=== PATIENT | female | born 1955 | race Caucasian/White ===

== ENCOUNTER 2020-01-21 22:32 | Outpatient (CLI) | payer OTHER | END 2020-01-21 22:33 | disposition critical access hospital (66) | LOC: EMS 22:32 | PROVIDERS: ATTEND Surgery | DX: R10.30 Lower abdominal pain, unspecified (principal); R06.02 Shortness of breath; R00.0 Tachycardia, unspecified | CPT/HCPCS: A0425; A0429 ==

== ENCOUNTER 2020-01-21 22:56 | Emergency (ER) | payer OTHER ==
[2020-01-21] MEDS ORDERED: SODIUM CHLORIDE 0.9% 1,000 ML IV ONE ×2 (23:10→23:49)
[2020-01-21] MEDS ORDERED: diltiaZEM INJ 5 MG/ML VIAL IVP STA (23:11)
[2020-01-21 23:23] LABS: BASOPHILS # (AUTO) 0.2 10^3/uL (0.0-0.1); BASOPHILS % (AUTO) 0.8 %; EOSINOPHILS # (AUTO) 0.1 10^3/uL (0.0-0.7); EOSINOPHILS % (AUTO) 0.4 %; HGB - HEMOGLOBIN 15.5 g/dL (12.0-16.0); LYMPHOCYTES # (AUTO) 0.5 10^3/uL (1.5-3.5); LYMPHOCYTES % (AUTO) 1.9 %; MEAN CORPUSCULAR HEMOGLOBIN 30.2 pg (27.0-31.0); MEAN CORPUSCULAR HGB CONC 32.7 g/dL (32.0-36.0); MEAN CORPUSCULAR VOLUME 92.4 fL (81.0-99.0); MEAN PLATELET VOLUME 9.4 fL (7.9-10.8); MONOCYTES # (AUTO) 1.2 10^3/uL (0.0-1.0); NEUTROPHILS # (AUTO) 22.5 10^3/uL (1.5-6.6); NEUTROPHILS % (AUTO) 91.1 %; PLT - PLATELET COUNT 310 10^3/uL (130-450); RED BLOOD COUNT 5.13 10^6/uL (4.20-5.40); RED CELL DISTRIBUTION WIDTH 13.5 % (12.0-15.0); WHITE BLOOD COUNT 24.6 x10^3/uL (4.8-10.8)
[2020-01-21] MEDS ORDERED: cefTRIAXone 2 GM in SODIUM CHLORIDE 0.9% MINIBAG 100 ML IV STA (23:26)
[2020-01-21] MEDS ORDERED: ONDANSETRON 4 MG/2 ML VIAL IVP STA (23:28)
[2020-01-21] MEDS ORDERED: HYDROmorphone 1 MG/ML CARPUJECT IVP STA (23:28)
[2020-01-21 23:36] LABS: ALBUMIN 3.4 g/dL (3.2-5.5); ALBUMIN/GLOBULIN RATIO 0.9 (1.0-2.2); BILIRUBIN,TOTAL 1.3 mg/dL (0.2-1.0); CALCIUM 9.4 mg/dL (8.5-10.3); CREATININE 1.3 mg/dL (0.4-1.0); TOTAL PROTEIN 7.3 g/dL (6.7-8.2)
[2020-01-21] MEDS ORDERED: IOVERSOL 320 100 ML VIAL IVP ONE (23:40)
--- NOTE | 2020-01-22 00:09 | XRAY Report ---
Reason: Chest pain Procedure Date: 01/21/2020 Accession Number: [id number] / [id number] Procedure: XR - Chest 1 View X-Ray CPT Code: 09296 Final Report FULL RESULT: EXAM: CHEST RADIOGRAPHY EXAM DATE: 01/21/2020 11:34 PM. CLINICAL HISTORY: Chest pain. COMPARISON: None. TECHNIQUE: 1 view. FINDINGS: Lungs/Pleura: No focal opacities evident. No pleural effusion. No pneumothorax. Mediastinum: Within exam limitations, the cardiomediastinal contour is normal. Other: None. IMPRESSION: No acute cardiopulmonary findings radiographically. RADIA
[2020-01-22] MEDS ORDERED: PIPERACILLIN/TAZOBACTAM 3.375 GM in SODIUM CHLORIDE 0.9% MINIBAG 100 ML IV STA (00:23)
--- NOTE | 2020-01-22 00:28 | ED Physician Documentation ---
History of Present Illness - Stated complaint Stated Complaint: AFIB - Chief complaint Chief Complaint: Cardiac - History obtained from History obtained from: Patient, EMS - History of Present Illness Timing: How many days ago (3) Pain level max: 10 Pain level now: 10 Quality: Dull Radiates to: None Improved by: Nothing Worsened by: Nothing - Additonal information Additional information: 64 year old female otherwise healthy presents to the emergency department with 3 days of generalized abdominal pain with nausea. Patient denies any vomiting. She reported of subjective fever and chills. Patient has been taking ibuprofen or tylenol without improvement. She denies denies any sick contacts or recent travel outside of country. She denies hx of the same. Her last bowel movement was on Tuesday. She last ate on Tuesday as well. Only previous abdominal surgery was ectopic with tube removed. Review of Systems Constitutional: reports: Fever, Chills Nose: denies: Rhinorrhea / runny nose, Foreign Body Cardiac: denies: Chest pain / pressure, Palpitations Respiratory: denies: Dyspnea, Cough GI: reports: Abdominal Pain, Nausea. 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 : None HEENT: None Psych: None Musculoskeletal: None - Past Surgical History Past Surgical History: Yes - Present Medications Home Medications: Ambulatory Orders Medication Instructions Recorded Confirmed Ciprofloxacin [Cipro] 500 mg PO BID #9 tablet 07/11/14 - Allergies Allergies/Adverse Reactions: Allergies Allergy/AdvReac Type Severity Reaction Status Date / Time aspirin Allergy Unknown Verified 07/11/14 03:43 - Social History Does the pt smoke?: No Smoking Status: Never smoker Does the pt drink ETOH?: No - Immunizations Immunizations are current?: Yes PD ED PE NORMAL - Vitals Vital signs reviewed: Yes - General General: Alert and oriented X 3, Other (moderate distress) - HEENT HEENT: Atraumatic - Neck Neck: Supple, no meningeal sign - Cardiac Cardiac: Other (tachycardiac and irregular) - Respiratory Respiratory: No respiratory distress - Abdomen Abdomen: Other (abdomen is mildy distended and diffusely tender. No guarding. ) - Derm Derm: Normal color, Warm and dry - Extremities Extremities: No deformity, No tenderness to palpate, No edema, No calf tenderness / cord - Neuro Neuro: Alert and oriented X 3, hot knife foxing cutter 2-12 intact Eye Opening: Spontaneous Motor: Obeys Commands Verbal: Oriented GCS Score: 15 Results - Vitals Vitals: Vital Signs - 24 hr 01/21/20 01/21/20 01/22/20 22:59 23:43 00:32 Temperature 36.2 C L Heart Rate 171 H 162 H 158 H Respiratory 34 H 16 25 H Rate Blood Pressure 107/79 106/93 H 120/82 H O2 Saturation 97 99 95 01/22/20 01/22/20 01/22/20 01:03 01:31 02:00 Temperature Heart Rate 151 H 164 H 159 H Respiratory 30 H 25 H 26 H Rate Blood Pressure 102/85 H 101/78 104/89 H O2 Saturation 96 94 97 Oxygen O2 Source Room air - EKG (time done) 2309 Rhythm: Atrial fibrillation [place]: Normal Intervals: Normal [place] QRS: Normal Ischemia: Non specific changes Compare to prior EKG: Old EKG unavailable - Labs Labs: Laboratory Tests 01/21/20 01/21/20 01/21/20 23:17 23:17 23:17 WBC 24.6 H RBC 5.13 Hgb 15.5 Hct 47.4 H MCV 92.4 MCH 30.2 MCHC 32.7 RDW 13.5 Plt Count 310 MPV 9.4 Neut # (Auto) 22.5 H Lymph # (Auto) 0.5 L [place] # (Auto) 1.2 H Eos # (Auto) 0.1 Baso # (Auto) 0.2 H Absolute Nucleated RBC 0.00 Nucleated RBC % 0.0 Sodium 133 L Potassium 3.4 L Chloride 94 L Carbon Dioxide 23 Anion Gap 16.0 H BUN 41 H Creatinine 1.3 H Estimated GFR (MDRD) 41 L Glucose 153 H Lactic Acid Calcium 9.4 Total Bilirubin 1.3 H AST 36 ALT 27 Alkaline Phosphatase 78 Troponin I High Sens 49.3 H* B-Natriuretic Peptide Total Protein 7.3 Albumin 3.4 Globulin 3.9 Albumin/Globulin Ratio 0.9 L Lipase 18 L 01/21/20 01/21/20 01/22/20 23:17 23:17 02:17 WBC RBC Hgb Hct MCV MCH MCHC RDW Plt Count MPV Neut # (Auto) Lymph # (Auto) [place] # (Auto) Eos # (Auto) Baso # (Auto) Absolute Nucleated RBC Nucleated RBC % Sodium Potassium Chloride Carbon Dioxide Anion Gap BUN Creatinine Estimated GFR (MDRD) Glucose Lactic Acid 3.1 H* 2.0 Calcium Total Bilirubin AST ALT Alkaline Phosphatase Troponin I High Sens B-Natriuretic Peptide 337 H Total Protein Albumin Globulin Albumin/Globulin Ratio Lipase PD MEDICAL DECISION MAKING - ED course Complexity details: re-evaluated patient, d/w patient, d/w family, d/w [employer] ascp consultant ED course: 64 YEAR OLD FEMALE PRESENTED TO THE EMERGENCY DEPARTMENT WITH ABDOMINAL PAIN FOR 3 DAYS. SHE WAS IN ATRIAL FIBRILLATION WTIH RAPID VENTRICULAR RESPONSE. ABDOMEN WAS MILDLY DISTENDED. PATIENT WAS IN MILD-MODERATE DISTRESS. IV FLUID, ROCEPHIN, ZOSYN WERE GIVEN. CARDIZEM BOLUS WITH INFUSION STARTED. CTA CHEST SHOWED NO PULMONARY EMBOLISM OR OTHER ACUTE FINDINGS. CT ABDOMEN PELVIS SHOWED FREE INTRAPERITONEAL AIR CONSISTENT WITH PERFORATED VISCUS AND FLUID COLLECTION AT THE SIGMOID COLON. THIS IS CONSISTENT WITH PERFORATED DIVERTICULITIS. CASE WAS DISCUSSED WITH DR. ROQUE, GENERAL SURGEON AND DR. NETTLES. THEY BOTH RECOMMENDED THE PATIENT TO BE TRANSFER TO A HIGHER LEVEL OF CARE. CALLED [facility] AND [facility] AND THERE WERE NO ICU BEDS AVAILABLE. SPOKE WITH DR. CHUNG, GENERAL SURGEON AT [facility]. HE ADVISED PATIENT TO BE TRANSFERRED TO THE EMERGENCY DEPARTMENT AND HAVE THE HOSPITALIST ADMIT THE PATIENT. PATIENT WILL NEED TO UNDERGO SURGERY. DISCUSSED WITH DR. SHAW, ED PHYSICIAN AT [facility]. THE PATIENT WAS ACCEPTED FOR TRANSFER. PATIENT REMAINED TACHYCARDIAC. 3RD LITER OF IV FLUID BOLUSES WERE GIVEN. Departure - Departure Disposition: 02 Transfer Acute Care Hosp Clinical Impression: Sepsis, Perforated viscus, Diverticulitis of intestine with perforation Condition: Critical
[2020-01-22] MEDS ORDERED: MORPHINE 2 MG/ML CARPUJECT IVP STA (00:30)
[2020-01-22] MEDS ORDERED: IOVERSOL 320 100 ML VIAL IVP ONE (00:34)
[2020-01-22] MEDS ORDERED: diltiaZEM INJ 5 MG/ML VIAL ONE (00:57)
[2020-01-22] MEDS ORDERED: diltiaZEM INJ 125 MG in DEXTROSE 5% 100 ML IV SCH (01:00)
[2020-01-22] MEDS ORDERED: diltiaZEM INJ 125 MG in SODIUM CHLORIDE 0.9% 100ML 100 ML IV STA (01:12)
--- NOTE | 2020-01-22 01:28 | CT Report ---
Reason: ABDOMINAL PAIN, CONCERN FOR MESENTERIC ISCHEMIA Procedure Date: 01/22/2020 Accession Number: [id number] / [id number] Procedure: CT - Abdomen/Pelvis W CPT Code: Final Report FULL RESULT: EXAM: CT ABDOMEN AND PELVIS EXAM DATE: 01/22/2020 12:38 AM. CLINICAL HISTORY: ABDOMINAL PAIN, CONCERN FOR MESENTERIC ISCHEMIA. COMPARISONS: CHEST ANGIO 01/22/2020 12:19 AM. TECHNIQUE: Routine helical CT imaging was performed through the abdomen and pelvis. IV contrast: 80 cc OPTIRAY 320. Enteric contrast: No. Reconstructions: Coronal and sagittal. In accordance with CT protocol optimization, one or more of the following dose reduction techniques were utilized for this exam: automated exposure control, adjustment of mA and/or KV based on patient size, or use of iterative reconstructive technique. FINDINGS: ABDOMEN: Lung Bases: Incompletely included lower lungs demonstrate scattered atelectasis. Heart size is within normal limits. No basilar effusions. Liver: Multiple cysts measuring up to 7.6 cm in the right hepatic lobe. Spleen: Unremarkable. Pancreas: Unremarkable. Gallbladder/Bile Ducts: Gallbladder is unremarkable. Biliary tree is normal caliber. Adrenal Glands: Unremarkable. Kidneys: No mass, calculi, or hydronephrosis. Peritoneum/Mesentery/Bowel/pelvis: Free intraperitoneal air is present. The majority is in the lower pelvis adjacent to the sigmoid colon. Crescentic 6.8 x 3.1 cm collection of gas and complex fluid in the left pelvis (series 10/images 40-50). Thickening of the sigmoid colon with adjacent free air (10/42). Mottled gas extends through the posterior aspect of the sigmoid colon (10/47). Lymph nodes: No mesenteric, periportal, or retroperitoneal lymphadenopathy. Vasculature: Abdominal aorta is nonaneurysmal. Portal vein is patent. Hepatic veins are patent. PELVIS: The bladder is unremarkable for the degree of distention. Fibroid uterus is present. No pelvic lymphadenopathy. Bones: No suspicious osseous lesions. IMPRESSION: Perforated sigmoid diverticulitis. There is enlargement of free intraperitoneal air and gas and fluid collection containing bowel contents in the dependent pelvis adjacent to the inflamed sigmoid. Surgical consultation is recommended. Small bowel ileus versus developing bowel obstruction, with the transition point near the sigmoid colon in the pelvis. RADIA The call report notification system was initiated by Dr. Antwon Flores at 01:18 AM on 01/22/2020. The above call report findings were discussed with Colin Meredith by Dr. Antwon Flores at 01:27 AM on 01/22/2020.
--- NOTE | 2020-01-22 01:30 | CT Report ---
Reason: PE STUDY Procedure Date: 01/22/2020 Accession Number: [id number] / [id number] Procedure: CT - ANGIO CHEST W/WO CPT Code: Final Report FULL RESULT: EXAM: CT ANGIOGRAM CHEST EXAM DATE: 01/22/2020 12:38 AM. CLINICAL HISTORY: Shortness of breath. COMPARISON: CHEST 1 VIEW 01/21/2020 11:16 PM. TECHNIQUE: Routine helical imaging was performed through the chest in the pulmonary arterial phase. IV Contrast: OPTIRAY 320. Reconstructions: Coronal 3-D MIP reconstructions. Sagittal and coronal. In accordance with CT protocol optimization, one or more of the following dose reduction techniques were utilized for this exam: automated exposure control, adjustment of mA and/or KV based on patient size, or use of iterative reconstructive technique. FINDINGS: Pulmonary Arteries: Diagnostic quality: Adequate through the segmental arteries. No evidence for acute or chronic pulmonary emboli. RV/LV is within normal limits. There is no interventricular septal bowing. There is no reflux of contrast material in the IVC. Lungs/Pleura: Mild dependent atelectasis in the right lower lobe. No pleural effusions or pneumothorax. Mediastinum: Heart size within normal limits. No pulmonary vascular congestion. Thoracic Aorta: Study not optimized for evaluation of the thoracic aorta. No aneurysmal dilatation. Upper Abdomen: Please see dedicated CT scan of the abdomen/pelvis reports for abdominal/pelvic findings. Other: Surgical clips in the left breast. IMPRESSION: 1. No evidence of pulmonary embolism. 2. Mild dependent atelectasis in the right lower lobe. 3. Please see dedicated CT scan of the abdomen/pelvis for abdominal/pelvic findings. RADIA
[2020-01-22] MEDS ORDERED: SODIUM CHLORIDE 0.9% 1,000 ML IV ONE ×2 (02:12→02:21)
[2020-01-22 03:17] VITALS: BP 102/92
== END 2020-01-22 03:37 | disposition short-term general hospital (02) ==
LOC: EDUNIT# → ED 22:56
DX: A41.9 Sepsis, unspecified organism (principal); K57.20 Diverticulitis of large intestine with perforation and abscess without bleeding; I48.91 Unspecified atrial fibrillation
CPT/HCPCS: 36415; 51702; 71045; 71275; 74177; 80053; 83605; 83690; 83880; 84484; 85025; 87040; 93005; 96361; 96365; 96367; 96375; 96376; 99284; 99285; J1170; Q9967

== ENCOUNTER 2021-09-21 08:58 | Outpatient (CLI) | payer MEDICARE, BC ==
[2021-09-21 10:19] LABS: BASOPHILS # (AUTO) 0.1 10^3/uL (0.0-0.1); EOSINOPHILS # (AUTO) 0.1 10^3/uL (0.0-0.7); EOSINOPHILS % (AUTO) 1.4 %; HCT - HEMATOCRIT 48.2 % (37.0-47.0); HGB - HEMOGLOBIN 15.9 g/dL (12.0-16.0); LYMPHOCYTES # (AUTO) 2.1 10^3/uL (1.5-3.5); LYMPHOCYTES % (AUTO) 29.3 %; MEAN CORPUSCULAR HEMOGLOBIN 31.1 pg (27.0-31.0); MEAN CORPUSCULAR VOLUME 94.3 fL (81.0-99.0); MEAN PLATELET VOLUME 9.2 fL (7.9-10.8); MONOCYTES # (AUTO) 0.7 10^3/uL (0.0-1.0); MONOCYTES % (AUTO) 9.8 %; NEUTROPHILS # (AUTO) 4.1 10^3/uL (1.5-6.6); NEUTROPHILS % (AUTO) 58.1 %; PLT - PLATELET COUNT 256 10^3/uL (130-450); RED BLOOD COUNT 5.11 10^6/uL (4.20-5.40); RED CELL DISTRIBUTION WIDTH 12.6 % (12.0-15.0); WHITE BLOOD COUNT 7.1 x10^3/uL (4.8-10.8)
[2021-09-21 10:40] LABS: ALBUMIN 4.5 g/dL (3.2-5.5); ALBUMIN/GLOBULIN RATIO 1.6 (1.0-2.2); ALKALINE PHOSPHATASE 54 IU/L (42-121); ALT ALANINE AMINOTRANSFERASE 16 IU/L (10-60); AST ASPARTATE AMINOTRANSFERASE 20 IU/L (10-42); BILIRUBIN,TOTAL 1.3 mg/dL (0.2-1.0); BUN - BLOOD UREA NITROGEN 17 mg/dL (6-20); CALCIUM 9.9 mg/dL (8.5-10.3); CARBON DIOXIDE - CO2 28 mmol/L (21-32); CHLORIDE 107 mmol/L (101-111); CHOL/HDL RATIO 4.3 (<4.4); CHOLESTEROL 239 mg/dL; CREATININE 0.9 mg/dL (0.4-1.0); GFR - MDRD 63 (>89); GLUCOSE 95 mg/dL (70-100); HDL CHOLESTEROL 56 mg/dL; LDL CHOLESTEROL,CALCULATED 160 mg/dL; LDL/HDL RATIO 2.9 (<4.4); POTASSIUM 4.2 mmol/L (3.5-5.0); SODIUM 144 mmol/L (135-145); TOTAL PROTEIN 7.4 g/dL (6.7-8.2); TRIGLYCERIDES 113 mg/dL; VLDL CHOLESTEROL 23 mg/dL
[2021-09-21 10:49] LABS: THYROID STIMULATING HORMONE 1.49 uIU/mL (0.34-5.60)
[2021-09-21 11:37] LABS: CREATININE,URINE 48.5 mg/dL; PROTEIN/CREATININE RATIO,URINE 0.2 (<=0.2)
== END 2021-09-21 08:59 | disposition home or self-care (01) ==
LOC: LAB 08:58
PROVIDERS: ATTEND Internal Medicine Nephrology
DX: Z72.0 Tobacco use (principal); N28.89 Other specified disorders of kidney and ureter; K57.92 Diverticulitis of intestine, part unspecified, without perforation or abscess without bleeding; R80.9 Proteinuria, unspecified; Z93.3 Colostomy status
CPT/HCPCS: 36415; 80053; 80061; 82570; 83721; 84156; 84443; 85025

== ENCOUNTER 2021-09-24 13:26 | Outpatient (CLI) | payer MEDICARE, BC ==
--- NOTE | 2021-09-24 19:07 | CT Report ---
PROCEDURE: CT chest without contrast, Low Dose Lung Cancer Screen INDICATIONS: TOBACCO ABUSE TECHNIQUE: Noncontrast low-dose images were acquired from the pulmonary apices to the posterior costophrenic ang les. Multiplanar MIP reformats were then acquired. For radiation dose reduction, the following was used: automated exposure control, adjustment of mA and/or kV according to patient size. COMPARISON: Prior CT abdomen and pelvis 01/21/2020 report. Images not available. FINDINGS: Image quality: Excellent. Lungs and pleura: Lungs and pleural spaces are clear. No evidence of pulmonary nodule, infiltrate, p leural effusion or pneumothorax. Mediastinum: Heart size is normal. No pericardial effusion. No mediastinal adenopathy by size crit eria. Thoracic aorta and central pulmonary arteries are normal in size. Esophagus is normal in miguel janet. No hiatal hernia. Bones and chest wall: No suspicious bony lesions. No vertebral body compression fractures. No axil eamon or supraclavicular adenopathy by size criteria. The thyroid is normal in size and there are no incidental findings. Surgical clips noted in the left breast. Abdomen: Multiple hepatic simple appearing cysts, largest in the right hepatic lobe measures 7.5 cm. IMPRESSION: 1. No evidence of pulmonary nodule, pneumothorax or pleural effusion. 2. Simple appearing hepatic cysts Reviewed by: Clive Isabel MD on 09/24/2021 6:06 PM FREYA Approved by: Clive Isabel MD on 09/24/2021 6:06 PM FREYA Station ID: [id number]
== END 2021-09-24 13:27 | disposition home or self-care (01) ==
LOC: DI 13:26
PROVIDERS: ATTEND Registered Nurse
DX: Z12.2 Encounter for screening for malignant neoplasm of respiratory organs (principal); F17.210 Nicotine dependence, cigarettes, uncomplicated; K76.89 Other specified diseases of liver

== ENCOUNTER 2021-11-04 12:15 | Outpatient (CLI) | payer MEDICARE, BC ==
[2021-11-04 12:36] LABS: BILIRUBIN,URINE NEGATIVE (NEGATIVE); GLUCOSE, URINE (UA) NEGATIVE (NEGATIVE); KETONES,URINE (UA) NEGATIVE (NEGATIVE); LEUKOCYTE ESTERASE, URINE NEGATIVE (NEGATIVE); NITRITE,URINE NEGATIVE (NEGATIVE); OCCULT BLOOD,URINE TRACE-INTA (NEGATIVE); PROTEIN,URINE NEGATIVE (NEGATIVE); UROBILINOGEN,URINE 0.2 (NORMAL) E.U./dL (NORMAL)
[2021-11-04 12:43] LABS: CREATININE 0.9 mg/dL (0.4-1.0)
[2021-11-04 13:08] LABS: BACTERIA,URINE None Seen /HPF (None Seen); CLARITY,URINE CLEAR (CLEAR); RBC,URINE None Seen /HPF (0-5); SQUAMOUS EPITHELIAL CELL,UR RARE Squamous (<= Few); WBC,URINE 0-3 /HPF (0-5)
== END 2021-11-04 12:16 | disposition home or self-care (01) ==
LOC: LAB 12:15
PROVIDERS: ATTEND Internal Medicine Nephrology
DX: N30.00 Acute cystitis without hematuria (principal); N05.9 Unspecified nephritic syndrome with unspecified morphologic changes
CPT/HCPCS: 36415; 81001; 82565

== ENCOUNTER 2021-11-09 10:40 | Outpatient (CLI) | payer MEDICARE, BC ==
[2021-11-09] MEDS ORDERED: IOVERSOL 320 50 ML VIAL ONE (10:50)
[2021-11-09] MEDS ORDERED: IOPAMIDOL-300 100 ML VIAL ONE (10:50)
--- NOTE | 2021-11-09 16:13 | CT Report ---
PROCEDURE: Abdomen/Pelvis W INDICATIONS: KIDNEY MASS CONTRAST: IV CONTRAST: Isovue 300 ml: 100 PO CONTRAST: Optiray 320 ml50 TECHNIQUE: After the administration of intravenous contrast, 5 mm thick sections acquired from the diaphragms to the symphysis. 5 mm thick coronal and sagittal reformats were acquired. For radiation dose reducti on, the following was used: automated exposure control, adjustment of mA and/or kV according to miguelito ent size. COMPARISON: CT chest 09/24/2021, CT abdomen pelvis 01/22/2020 FINDINGS: Image quality: Excellent. ABDOMEN: Lung bases: There is minimal dependent atelectasis. Heart size is normal. Solid organs: Multiple hepatic cysts are redemonstrated, with the largest in the right lobe measurin g up to 7.8 x 6.0 cm in transverse dimension. These are similar in size to the prior studies. Gallbla dder appears within normal limits without calcified gallstones. Biliary system is non dilated. Pancr eas enhances normally. No adrenal nodules. There is a small exophytic peripherally enhancing mass extending anterolaterally from the inferior po le the left kidney. This measures up to approximately 1.6 x 1.1 x 1.5 cm in dimension, similar in siz e compared to the prior studies dating back to 01/22/2020. No evidence of adjacent perinephric solid o rgan invasion. No hilar or renal vein invasion. No discrete additional renal mass identified. There a re a few small punctate hypodense foci within the kidneys which are too small to characterize but lik shauna represent cysts. No hydronephrosis. Peritoneum and bowel: Bowel loops demonstrate normal wall thickness and caliber. No free fluid or a ir. Nodes and vessels: No retroperitoneal or mesenteric adenopathy by size criteria. Aorta and inferior vena cava are normal in size. Miscellaneous: No ventral hernias. PELVIS: Genitourinary: Bladder wall thickness is normal. There are calcified mass is redemonstrated within t he uterus consistent with uterine fibroids. Miscellaneous: No inguinal hernias or adenopathy. Bones: No suspicious bony lesions. No vertebral body compression fractures. IMPRESSION: 1. Enhancing exophytic mass in the inferior pole the left kidney appears similar in size compared to the prior studies. The findings most likely represent renal cell carcinoma. No evidence of adjacent s olid organ invasion or renal vein extension. 2. No evidence of lymphadenopathy in the abdomen and pelvis by size criteria. 3. Numerous hepatic cysts redemonstrated. Reviewed by: Quincy Peters MD on 11/09/2021 4:11 PM PST Approved by: Quincy Peters MD on 11/09/2021 4:11 PM PST Station ID: [id number]
[2021-11-09] MEDS ORDERED: IOPAMIDOL-300 100 ML VIAL IVP ONE (19:04)
[2021-11-09] MEDS ORDERED: IOPAMIDOL-300 50 ML VIAL PO ONE (19:05)
== END 2021-11-09 10:41 | disposition home or self-care (01) ==
LOC: DI 10:40
PROVIDERS: ATTEND Internal Medicine Nephrology
DX: N28.89 Other specified disorders of kidney and ureter (principal); K76.89 Other specified diseases of liver
CPT/HCPCS: 74177; Q9967

== ENCOUNTER 2022-02-08 13:40 | Emergency (ER) | payer MEDICARE, BC ==
[2022-02-08 14:14] LABS: BASOPHILS % (AUTO) 0.6 %; EOSINOPHILS % (AUTO) 0.6 %; HCT - HEMATOCRIT 44.9 % (37.0-47.0); HGB - HEMOGLOBIN 15.2 g/dL (12.0-16.0); LYMPHOCYTES # (AUTO) 1.9 10^3/uL (1.5-3.5); LYMPHOCYTES % (AUTO) 28.4 %; MEAN CORPUSCULAR HGB CONC 33.9 g/dL (32.0-36.0); MEAN CORPUSCULAR VOLUME 91.4 fL (81.0-99.0); MEAN PLATELET VOLUME 9.2 fL (7.9-10.8); MONOCYTES # (AUTO) 0.6 10^3/uL (0.0-1.0); MONOCYTES % (AUTO) 9.6 %; NEUTROPHILS % (AUTO) 60.6 %; PLT - PLATELET COUNT 258 10^3/uL (130-450); RED BLOOD COUNT 4.91 10^6/uL (4.20-5.40); RED CELL DISTRIBUTION WIDTH 12.6 % (12.0-15.0); WHITE BLOOD COUNT 6.6 x10^3/uL (4.8-10.8)
--- NOTE | 2022-02-08 14:24 | XRAY Report ---
PROCEDURE: Chest 1 View X-Ray INDICATIONS: Chest pain TECHNIQUE: One view of the chest was acquired. COMPARISON: 01/21/2020 FINDINGS: Surgical changes and devices: Surgical clips are noted in left breast. Lungs and pleura: No pleural effusions or pneumothorax. Lungs are clear. Mediastinum: Mediastinal contours appear normal. Heart size is normal. Bones and chest wall: No suspicious bony lesions. Overlying soft tissues appear unremarkable. IMPRESSION: No acute cardiopulmonary pathology. Reviewed by: Sanjay Whittaker MD on 02/08/2022 2:22 PM PDT Approved by: Sanjay Whittaker MD on 02/08/2022 2:22 PM PDT Station ID: [id number]
[2022-02-08 14:36] LABS: ALBUMIN 4.3 g/dL (3.2-5.5); ALBUMIN/GLOBULIN RATIO 1.7 (1.0-2.2); BILIRUBIN,TOTAL 0.9 mg/dL (0.2-1.0); CALCIUM 9.5 mg/dL (8.5-10.3); CREATININE 0.9 mg/dL (0.4-1.0); POTASSIUM 3.8 mmol/L (3.5-5.0); TOTAL PROTEIN 6.9 g/dL (6.7-8.2)
--- NOTE | 2022-02-08 15:58 | ED Physician Documentation ---
History of Present Illness - Stated complaint Stated Complaint: CHEST PX - Chief complaint Chief Complaint: Cardiac - History obtained from History obtained from: Patient - History of Present Illness Timing: Today Pain level max: 0 Pain level now: 0 - Additonal information Additional information: Patient is a 66-year-old female who states that last night she had an episode of feeling her heart race for about 10 minutes. She states that intermittently her blood pressure has been high over the past few weeks. She occasionally has palpitations and occasionally feels her heart race. She thinks that she had atrial fibrillation once after a bowel perforation. She does not recall any other arrhythmias. Nothing makes it better or worse. Currently asymptomatic. No chest pain. No shortness of breath. No nausea or vomiting. 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 : None HEENT: None Psych: None Musculoskeletal: None - Past Surgical History Past Surgical History: Yes - Present Medications Home Medications: Ambulatory Orders Medication Instructions Recorded Confirmed Ciprofloxacin [Cipro] 500 mg PO BID #9 tablet 07/11/14 - Allergies Allergies/Adverse Reactions: Allergies Allergy/AdvReac Type Severity Reaction Status Date / Time aspirin AdvReac Emesis Verified 02/08/22 13:54 - Social History Does the pt smoke?: No Smoking Status: Never smoker Does the pt drink ETOH?: No - Immunizations Immunizations are current?: Yes PD ED PE NORMAL - Vitals Vital signs reviewed: Yes - General General: Alert and oriented X 3, No acute distress, Well developed/nourished - HEENT HEENT: PERRL, Moist mucous membranes - Neck Neck: Supple, no meningeal sign - Cardiac Cardiac: RRR, No murmur, Strong equal pulses - Respiratory Respiratory: No respiratory distress, Clear bilaterally - Abdomen Abdomen: Soft, Non tender, Non distended - Derm Derm: Warm and dry - Extremities Extremities: No edema - Neuro Neuro: Alert and oriented X 3 - Psych Psych: Normal mood, Normal affect Results - Vitals Vitals: Vital Signs - 24 hr 02/08/22 02/08/22 02/08/22 13:49 15:58 16:06 Temperature 36.2 C L 36.9 C Heart Rate 75 70 88 Respiratory 16 17 16 Rate Blood Pressure 150/85 H 155/86 H 156/86 H O2 Saturation 93 97 98 02/08/22 16:31 Temperature 36.5 C Heart Rate 88 Respiratory 16 Rate Blood Pressure 154/86 H O2 Saturation 98 Oxygen O2 Source Room air - EKG (time done) 1352 Rate: Rate (enter#) (73) Rhythm: NSR [place]: Normal Intervals: Normal [place] QRS: Normal Ischemia: Normal ST segments - Labs Labs: Laboratory Tests 02/08/22 02/08/22 02/08/22 14:05 14:05 14:05 WBC 6.6 RBC 4.91 Hgb 15.2 Hct 44.9 MCV 91.4 MCH 31.0 MCHC 33.9 RDW 12.6 Plt Count 258 MPV 9.2 Neut # (Auto) 4.0 Lymph # (Auto) 1.9 [place] # (Auto) 0.6 Eos # (Auto) 0.0 Baso # (Auto) 0.0 Absolute Nucleated RBC 0.00 Nucleated RBC % 0.0 Sodium 137 Potassium 3.8 Chloride 102 Carbon Dioxide 23 Anion Gap 12.0 BUN 12 Creatinine 0.9 Estimated GFR (MDRD) 63 L Glucose 115 H Calcium 9.5 Total Bilirubin 0.9 AST 21 ALT 15 Alkaline Phosphatase 52 Troponin I High Sens 5.9 Total Protein 6.9 Albumin 4.3 Globulin 2.6 Albumin/Globulin Ratio 1.7 Lipase 31 - Rads (name of study) cxr Radiology: Final report received, EMP read contemporaneously, See rad report (no acute abnormality.) PD MEDICAL DECISION MAKING - ED course Complexity details: reviewed results, re-evaluated patient, considered differential (No ST elevation [place], no aortic dissection, no PE, no tension pneumothorax, no aortic aneurysm), d/w patient ED course: Patient with intermittent palpitations over the past few days. No significant lab abnormalities, EKG abnormalities. Patient is well-appearing, nontoxic. Afebrile. No acute findings on telemetry here. Possible paroxysmal atrial fibrillation. We will have her follow-up with her doctor for a heart monitor. Patient counseled regarding signs and symptoms for which I believe and urgent re-evaluation would be necessary. Patient with good understanding of and agreement to plan and is comfortable going home at this time This document was made in part using voice recognition software. While efforts are made to proofread this document, sound alike and grammatical errors may occur. Departure - Departure Disposition: 01 Home, Self Care Clinical Impression: Palpitations Condition: Good Instructions: ED Palpitations Follow-Up: Adali Vogel ARNP [Primary Care Provider] - Within 1 week Comments: Please follow-up with your doctor for further care. Return if you worsen. It sounds as if you may be having paroxysmal atrial fibrillation. Is recommended that your doctor order a heart monitor for you to wear to determine if you are having any arrhythmias. Discharge Date/Time: 02/08/22 16:32
[2022-02-08 16:32] VITALS: BP 154/86
== END 2022-02-08 16:32 | disposition home or self-care (01) ==
LOC: ED 13:40
DX: R00.2 Palpitations (principal)
CPT/HCPCS: 36415; 80053; 83690; 84484; 85025; 93005; 99284

== ENCOUNTER 2022-09-20 10:46 | Outpatient (CLI) | payer MEDICARE, BC ==
--- NOTE | 2022-09-20 12:07 | CT Report ---
PROCEDURE: Low Dose Lung Cancer Screen INDICATIONS: SMOKER TECHNIQUE: Noncontrast low-dose axial images were acquired from the pulmonary apices to the posterior costophren ic angles. Multiplanar MIP reformats were then reconstructed. For radiation dose reduction, the follo wing was used: automated exposure control, adjustment of mA and/or kV according to patient size. COMPARISON: 09/24/2021 FINDINGS: Image quality: There is motion degradation Lungs and pleura: No consolidation or pleural effusions. Scattered scarring/atelectasis. No pulmonary nodules are identified that would change follow-up interval. Pulmonary micronodules are best seen on maximum intensity projection images, for example on the maximum intensity projection image 6 on the left. Mediastinum, heart, and esophagus: No hiatal hernia. No pathologic adenopathy by size criteria. Heart size is overall normal. Chest wall and thyroid: Left breast clips. Upper abdomen: As before, partially seen numerous hepatic hypoattenuating lesions probably cysts. Oth erwise unremarkable abdomen on limited noncontrast low-dose CT. Bones: No acute or suspicious osseous finding. Right clavicle deformity as before IMPRESSION: Lung RADS 2: Continue annual screening in 12 months. Other incidental/stable findings above. Reviewed by: Marco Young MD on 09/20/2022 12:06 PM PDT Approved by: Marco Young MD on 09/20/2022 12:06 PM PDT Station ID: [id number]
== END 2022-09-20 10:47 | disposition home or self-care (01) ==
LOC: DI 10:46
PROVIDERS: ATTEND Registered Nurse
DX: Z12.2 Encounter for screening for malignant neoplasm of respiratory organs (principal); F17.210 Nicotine dependence, cigarettes, uncomplicated

== ENCOUNTER 2023-01-13 14:24 | Outpatient (CLI) | payer MEDICARE, BC ==
--- NOTE | 2023-01-14 12:15 | Mammography Report ---
BILATERAL DIGITAL SCREENING MAMMOGRAM 3D/2D: 01/13/2023 CLINICAL: Baseline exam. Routine screening. No prior exams were available for comparison. There are scattered areas of fibroglandular density in both breasts (category b / 25%-50% glandular t issue). No significant masses, calcifications, or other findings are seen in either breast. IMPRESSION: NEGATIVE There is no mammographic evidence of malignancy. A 1 year screening mammogram is recommended. Based on the Tyrer Cuzick model (a risk assessment model) the patients lifetime risk is 6.4% and her 10 year risk is 3.4%. According to the ACR, ACS, and NCCN guidelines, an annual breast MRI exam vamshi g with mammogram is recommended if the patients lifetime risk is 20% or greater. This exam was interpreted at Station ID: [id number]. NOTE: For mammograms, a report in lay terms will be sent to the patient. Approximately 15% of breast malignancies will not be visualized mammographically. In the management of a palpable breast mass, a negative mammogram must not discourage biopsy of a clinically suspicious lesion. Electronically Signed By: Godfrey Grant M.D., jr/pushpa:01/13/2023 15:09:15 ACR BI-RADS Category 1: Negative 3341F PARENCHYMAL PATTERN: (A) - The breast(s) demonstrate(s) scattered fibroglandular densities. BI-RADS CATEGORY: (1) - 1 RECOMMENDATION: (ANNUAL) - Recommend routine annual screening mammography. [id number] 1 year screening LATERALITY: (B)
== END 2023-01-13 14:25 | disposition home or self-care (01) ==
LOC: DI 14:24
PROVIDERS: ATTEND Registered Nurse
DX: Z12.31 Encounter for screening mammogram for malignant neoplasm of breast (principal)

== ENCOUNTER 2023-01-13 14:24 | Outpatient (CLI) | payer MEDICARE, BC ==
--- NOTE | 2023-01-13 16:45 | DEXA Report ---
PROCEDURE: Dexa Spine and/or Hip INDICATIONS: POST MENOPAUSAL TECHNIQUE: Dual energy x-ray absorptiometry (DXA) was performed on a PT PAL System. Regions measur ed are the AP Spine, femoral neck, and if needed forearm. COMPARISON: None. FINDINGS: Lumbar Spine: Bone Mineral Density 1.309 g/cm/cm,T score 1.1, normal Left Femoral Neck: Bone Mineral Density 0.764 g/cm/cm, T score -2.0, osteopenia Left Hip: Bone Mineral Density 0.891 g/cm/cm,T score -0.9, low normal (T score greater or equal to -1.0: NORMAL) (T score from -1.1 to -2.4: OSTEOPENIA) (T score less than or equal to -2.5 to: OSTEOPOROSIS) Impression: Left femoral neck osteopenia Patients with diagnosis of osteoporosis or osteopenia should have regular bone mineral density assess ment. For those eligible for Medicare, routine testing is allowed once every 2 years. Testing frequ ency can be increased for patients who have rapidly progressing disease or for those who are receivin g medical therapy to restore bone mass. Reviewed by: Clive Isabel MD on 01/13/2023 3:44 PM AKST Approved by: Clive Isabel MD on 01/13/2023 3:44 PM AKST Station ID: [id number]
== END 2023-01-13 14:25 | disposition home or self-care (01) ==
LOC: DI 14:24
PROVIDERS: ATTEND Registered Nurse
DX: Z78.0 Asymptomatic menopausal state (principal); M85.88 Other specified disorders of bone density and structure, other site

== ENCOUNTER 2023-10-11 09:30 | Outpatient (CLI) | payer MEDICARE, BC ==
--- NOTE | 2023-10-11 18:21 | CT Report ---
PROCEDURE: CHEST WO INDICATIONS: TOBACCO ABUSE TECHNIQUE: Noncontrast 1mm axial images were acquired from the pulmonary apices to the posterior costophrenic an gles. Axial 5 mm soft tissue kernel reconstructions were performed as well as 8 mm axial MIP and cor onal and sagittal 5 mm reformations. For radiation dose reduction, the following was used: automate d exposure control, adjustment of mA and/or kV according to patient size. COMPARISON: Low-dose lung screening CT chest dated 09/20/2022, CT abdomen and pelvis with contrast d ated 01/22/2020 FINDINGS: Image quality: Excellent. Lungs and pleura: No consolidation. No pleural effusions. No pneumothorax. No suspicious pulmonary n odules which require follow up. Mediastinum: Heart size is normal. No pericardial effusion. No large vessel abnormality. No mediastin al adenopathy by size criteria. Chest wall and lower neck: Thyroid is unremarkable. No axillary or supraclavicular adenopathy by size . Left breast clips. Bones: No aggressive osseous abnormality. Upper Abdomen: A previously 8.9 cm craniocaudal dimension right lobe liver cyst has decreased in size , now measuring I 0.8 cm. It also has developed relatively increased density. Findings are consistent with interval partial cyst drainage or cyst rupture and shrinkage. The Hounsfield measurements are s till water Hounsfield density. Multiple other liver cysts are noted. IMPRESSION: No suspicious pulmonary nodules. No findings suspicious for pulmonary malignancy. 2. No acute pulmonary process. 3. Multiple liver cysts. Consider resumption of yearly low-dose lung screening CT follow-up in 12 months. Reviewed by: Piyush Yancey MD on 10/11/2023 6:20 PM PST Approved by: Piyush Yancey MD on 10/11/2023 6:20 PM PST Station ID: [id number]
== END 2023-10-11 09:31 | disposition home or self-care (01) ==
LOC: DI 09:30
PROVIDERS: ATTEND Registered Nurse
DX: F17.200 Nicotine dependence, unspecified, uncomplicated (principal); K76.89 Other specified diseases of liver